=== PATIENT | female | born 1945 | race Caucasian/White ===

== ENCOUNTER 2017-01-26 07:13 | Emergency (ER) | payer MEDICARE, OTHER ==
[2016-06-15 12:33] VITALS: BMI 45.6
[~2017-01-26 07:13] MED LIST: ALENDRONATE SOD70 MG PO; ALLEGRA180 MG PO; AMITRIPTYLINE100 MG PO; ASPIRIN325 MG PO; BENTYL10 MG PO; BYSTOLIC5 MG PO; CALCIUM 600+D T1 TA1 PO; CARAFATE1 G PO; CELEBREX200 MG PO; COUMADIN7.5 MG PO; ENABLEX15 MG PO; FERROUS SULFAT325 MG PO; FLAXSEED OIL1000 MG PO; FLUTICASONE PRO16 GM NASAL; FLUTICASONE PRO16 GM NS; KLOR-CON 1010 MEQ PO; LANOXIN125 MCG PO; LANOXIN250 MCG PO; LASIX20 MG PO; LASIX40 MG PO; LISINOPRIL5 MG PO; LOMOTIL TABLET1 TAB PO; MIRALAX527 GM PO; NEURONTIN600 MG PO; NEXIUM10 MG/PACK PO; NITROSTAT0.4 MG SL; NORCO 7.5-3251 EACH PO; PLAVIX75 MG PO; PREMPRO 0.625/21 TAB PO; REGLAN10 MG PO; REQUIP XL2 MG PO; REQUIP1 MG PO; RESTORIL15 MG PO; RITALIN10 MG PO; SOMA350 MG; SYNTHROID100 MCG PO; SYNTHROID150 MCG PO; TOPAMAX100 MG PO; TOPROL XL50 MG PO; TRILEPTAL600 MG PO; VITAMIN B-1000 MCG/M IM; VITAMIN D250000 UNIT PO; VITAMIN D50000 UNIT PO; WELLBUTRIN SR150 MG PO; XANAX1 MG PO; XARELTO20 MG PO; ZANAFLEX4 MG PO; ZANTAC150 MG PO
[2017-01-26 08:10] LABS: BASOPHILS 0.3 % (0-2); HEMATOCRIT 33.8 % (36.0-48.0); HEMOGLOBIN 10.6 g/dL (12-16); IMMATURE GRANULOCYTES 0.3 % (0-5); LYMPHOCYTES 15.7 % (15-50); MCH 30.9 pg (26.0-34.0); MCHC 31.4 g/dL (31.0-37.0); MCV 98.5 fL (80.0-100.0); MEAN PLATELET VOLUME 9.6 fL (7.4-10.4); MONOCYTES 8.9 % (2-11); NEUTROPHILS 73.8 % (40-80); RBC 3.43 10x6/uL (4.00-5.40); WBC 7.7 10x3/uL (4.8-10.8)
[2017-01-26 08:11] LABS: PLATELET COUNT 308 10x3/uL (130-400)
[2017-01-26 08:40] LABS: ALBUMIN 2.7 g/dL (3.4-5.0); ALKALINE PHOSPHATASE 255 U/L (46-116); ALT (SGPT) 23 U/L (10-68); CALC OSMOLALITY 276 mosm/kg (275-300); CALCIUM 8.4 mg/dL (8.5-10.1); CARBON DIOXIDE 27.6 mmol/L (21.0-32.0); CHLORIDE - SERUM 103 mmol/L (98-107); CREATININE - SERUM 0.7 mg/dL (0.6-1.3); POTASSIUM - SERUM 3.5 mmol/L (3.5-5.1); PROTEIN - SERUM 6.8 g/dL (6.4-8.2); SODIUM 139 mmol/L (136-145); UREA NITROGEN 11 mg/dL (7-18); eGFR NON AFRICAN AMERICAN 87 mL/min (90-120)
[2017-01-26 08:42] LABS: GLUCOSE 107 mg/dL (74-106)
[2017-01-26 08:51] LABS: CKMB 1.3 U/L (0.0-3.6); CREATINE KINASE 48 UL (21-215)
[2017-01-26 08:53] LABS: TROPONIN-I < 0.017 ng/mL (0.000-0.060)
[2017-01-26 10:36] LABS: TROPONIN-I 0.018 ng/mL (0.000-0.060)
[2017-01-26 12:47] LABS: APPEARANCE CLEAR (CLEAR); BILIRUBIN NEGATIVE (NEGATIVE); COLOR STRAW (YELLOW); GLUCOSE NEGATIVE (NEGATIVE); KETONE NEGATIVE (NEGATIVE); LEUKOCYTE ESTERASE NEGATIVE (NEGATIVE); NITRITE NEGATIVE (NEGATIVE); PROTEIN NEGATIVE (NEGATIVE); SPECIFIC GRAVITY 1.005 (1.005-1.020); UROBILINOGEN NORMAL (NORMAL)
[2017-01-26 12:48] LABS: BACTERIA FEW /hpf (NONE SEEN); EPITHELIAL CELLS OCC /hpf (0-5); RED CELLS - URINE 0-5 /hpf (0-5); WHITE CELLS - URINE OCC /hpf (0-5)
== END 2017-01-26 19:35 | disposition home or self-care (01) ==
LOC: D.ER 07:13
PROVIDERS: Family Medicine
DX: R07.89 Other chest pain (principal); Z95.5 Presence of coronary angioplasty implant and graft; I48.91 Unspecified atrial fibrillation

== ENCOUNTER 2017-03-23 09:59 | Inpatient (IN) | payer MEDICARE, OTHER ==
[~2017-03-23] VITALS: Ht 167.6 cm; Wt 102.3 kg
--- NOTE | ~2017-03-23 | EC ---
PATIENT:JETT MANN DATE OF SERVICE: 03/24/17 SEX: F MEDICAL RECORD: [id number] DATE OF : 43 LOCATION:[facility] AGE OF PATIENT: 71 ADMISSION DATE: 03/24/17 REFERRING PHYSICIAN: INTERPRETING PHYSICIAN: CONCEPCIÓN DOMINGO MD ECHOCARDIOGRAM REPORT ECHO CHARGES 4 ECHO COMPLETE CLINICAL DIAGNOSIS: AFIB/L MCA INFARCT HX CAD/STENTS ECHOCARDIOGRAPHIC MEASUREMENTS (adult normal given) AC root (d.<3.7cm) 3.0 cm LV Septum d (<1.2 cm> 1.0 cm Valve Excursion 1.9 cm LV Septum (systole) 1.3 cm Left Atria (s.<4.0cm> 4.5 cm LVPW d(<1.2cm) 1.1 cm RV (d.<2.3cm) 4.4 cm LVPW (sytole) 1.4 cm LV diastole(<5.6CM) 6.3 cm MV E-F(>70mm/sec) cm LV systole 4.7 cm LVOT Diameter 1.6 cm MV exc.(>10mm) 1.9 cm Est.ejection fraction (50-75%) % Pericardial Effusion N DOPPLER: LVIT cm/sec A 48.0 cm/sec E 127 cm/sec LA cm/sec RVSP 32 mmHg LVOT 61 cm/sec AOP1/2T 1000 m/s Asc. Ao 154 cm/sec RVOT 108 cm/sec RA cm/sec PA 140 cm/sec AV Gradient Peak 9.52 mmHg AV Mean 4.85 mmHg AV Area 1.1 cm MV Gradient Peak 9.03 mmHg MV Mean 2.66 mmHg MV Area cm COMMENTS: Receiving Associate: Charlene SANTA Shade Matcher: 1 Dr. Domingo TAPE# PACS DATE OF SERVICE: 03/25/2017 ECHOCARDIOGRAM FINDINGS: 1. Left ventricular chamber size is mildly dilated. Left ventricular systolic function is normal. Overall ejection fraction estimated at 55%. 2. Left atrium is mildly enlarged at 4.5 cm. Right atrium and right ventricle chamber sizes are as well mildly dilated. 3. Valvular structures have normal structure and motion. ECHOCARDIOGRAM REPORT [id number] JETT MANN 4. Doppler interrogation reveals acnmtrgp-[id number] aortic insufficiency, mild mitral regurgitation, mild tricuspid regurgitation, no other valvular insufficiency or stenosis. Pulmonary systolic pressure is preserved, estimated at 32 mmHg. 5. No evidence of pericardial effusion or left ventricular thrombus. TRANSINT:[id number] Voice Confirmation ID: [id number] DOCUMENT ID: [id number] CONCEPCIÓN DOMINGO MD CC: [id number] DICTATION DATE: 03/25/17 1639 MECHANICAL ENGINEERING TECHNICIAN: 03/26/17 0010 ADM IN [facility] [address] [id number]
--- NOTE | ~2017-03-23 | CN ---
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 Currently, has some dysarthria that is improving. No other complaints. We are asked to see her concerning her cardiovascular status. PAST MEDICAL HISTORY: Includes: 1. History of cardiomyopathy. 2. Atrial fibrillation, chronic in nature. 3. Hypertension. 4. Osteoarthritis, status post total knee on the right. ALLERGIES: FLEXERIL AND PENICILLIN. MEDICATIONS: Typically include Zantac 150 at h.s., Lasix 80 q. day, Ambien 5 q.h.s. p.r.n., Xanax 1 mg b.i.d. p.r.n., Trileptal 600 q. day, Requip 300 t.i.d., amitriptyline 100 at h.s., Wellbutrin 150 q. day, lisinopril 5 q. day, digoxin 0.125 q. day, metoprolol 50 daily, Xarelto 20 q. day, Zanaflex 4 mg t.i.d. SOCIAL HISTORY: Lives in [place]. She is a nonsmoker. Typically, is able to take care of her ADLs. Good family support. REVIEW OF SYSTEMS: The patient reports easy bruising but reports no swollen glands. The patient reports no fever, no night sweats, no significant weight gain, no significant weight loss. No significant exercise tolerance. The patient reports no dry eyes, no irritation, no vision change. Patient reports no difficulty hearing and no ear pain. Patient reports no frequent nose bleeds or nose and sinus problems. Patient reports on arm pain on exertion. No shortness of breath while lying down. No history of heart murmur. Patient reports no cough, no wheezing or coughing up blood. Patient reports no abdominal pain, no vomiting. Normal appetite. No diarrhea and not vomiting blood. No nausea and no constipation. Patient reports no incontinence. No difficulty urinating. No hematuria. No increased frequency. Patient reports no muscle aches. No weakness, no arthralgias, no back pain. No swelling of the extremities. Patient reports no abnormal mole, no jaundice, no rashes. Reports no loss of consciousness. No weakness and no numbness. No seizures, dizziness, or headaches. The patient reports no depression, no sleep disturbance, feeling safe in a relationship and no alcohol abuse. Patient reports on fatigue. Reports no runny nose or sinus pressure. No itching, no hives, and no frequent sneezing. PHYSICAL EXAMINATION: GENERAL: Pleasant, well developed female, in no acute distress. VITAL SIGNS: 127/67, pulse 78. CONSULT REPORT [id number] JETT MANN HEENT: Normocephalic, atraumatic. NECK: No bruits noted. HEART: Irregular. II/ systolic ejection murmur. LUNGS: Good air excursion. ABDOMEN: Soft, nontender. EXTREMITIES: Pulses are 2+ with no edema. NEUROLOGIC: She has obvious dysarthria and is awake, cooperative. IMPRESSION: Atrial fibrillation, some bradyarrhythmias. This is mostly occurring at night. If rates increase nicely during the day, would continue current medications. If rate becomes slower, could consider stopping Lanoxin. Further recommendations based on clinical course. No contraindication at discharge from cardiac standpoint. TRANSINT:[id number] Voice Confirmation ID: [id number] DOCUMENT ID: [id number] ELIZABETH ESTRADA MD CC: [id number] DICTATION DATE: 03/26/17 1406 GLASSINE MACHINE TENDER: 03/26/17 2220 ADM IN [id number] [place] [address]
[2017-03-23 10:40] LABS: BASOPHILS 0.3 % (0-2); EOSINOPHILS 3.2 % (0-7); HEMATOCRIT 33.9 % (36.0-48.0); HEMOGLOBIN 10.8 g/dL (12-16); IMMATURE GRANULOCYTES 0.2 % (0-5); LYMPHOCYTES 11.5 % (15-50); MCH 30.8 pg (26.0-34.0); MCHC 31.9 g/dL (31.0-37.0); MCV 96.6 fL (80.0-100.0); MEAN PLATELET VOLUME 9.7 fL (7.4-10.4); MONOCYTES 7.8 % (2-11); RBC 3.51 10x6/uL (4.00-5.40); RDW 14.9 % (11.5-14.5); WBC 6.5 10x3/uL (4.8-10.8)
[2017-03-23 10:42] LABS: PLATELET COUNT 216 10x3/uL (130-400)
[2017-03-23 10:49] LABS: ANION GAP 11.3 mmol/L (8-16); CALCIUM 8.4 mg/dL (8.5-10.1); CARBON DIOXIDE 24.5 mmol/L (21.0-32.0); CREATININE - SERUM 1.1 mg/dL (0.6-1.3); POTASSIUM - SERUM 4.8 mmol/L (3.5-5.1)
[2017-03-23 10:50] LABS: INR 1.02 (0.85-1.17); PROTIME 13.3 SECONDS (11.6-15.0)
[2017-03-23 12:25] LABS: APPEARANCE CLEAR (CLEAR); BILIRUBIN NEGATIVE (NEGATIVE); COLOR YELLOW (YELLOW); GLUCOSE NEGATIVE (NEGATIVE); KETONE NEGATIVE (NEGATIVE); LEUKOCYTE ESTERASE NEGATIVE (NEGATIVE); NITRITE NEGATIVE (NEGATIVE); PROTEIN NEGATIVE (NEGATIVE); UROBILINOGEN NORMAL (NORMAL)
[2017-03-23 12:31] LABS: BACTERIA FEW /hpf (NONE SEEN); EPITHELIAL CELLS RARE /hpf (0-5); RED CELLS - URINE RARE /hpf (0-5); WHITE CELLS - URINE NSEEN /hpf (0-5)
--- NOTE | 2017-03-23 15:20 | NUR ---
PATIENT RECEIVED TO FLOOR FROM ER VIA STRETCHER. PATIENT A/O X4. NO SIGNS OF DISTRESS NOTED. TRANSFERRED TO BED. PATIENT REQUESTING CATHETER. EXPLAINED TO PATIENT WE DON'T USE CATHETERS UNLESS THEY ARE ABSOLUTELY NECESSARY BECAUSE OF THE RISK OF INFECTION AND OTHER PROBLEMS. PATIENT STATES "I'M WET." WET BRIEF REMOVED. CLEANSED WITH BATH WIPES AND POSITIONED FOR COMFORT. WHEN ASKED ABOUT MOBILITY PATIENT STATES SHE CAN GET UP WITH HELP FROM 2 PEOPLE. BSC PLACED IN ROOM. PATIENT ORIENTED TO ROOM. DENIES NEEDS. SIDE RAILS UP X2. CALL LIGHT IN REACH. BED ALARM ON.
[2017-03-23] MEDS ORDERED: AMBIEN5 MG PO (15:31)
[2017-03-23] MEDS ORDERED: BACTRIM DS TABL1 TAB PO (15:32)
[2017-03-23] MEDS ORDERED: K-DUR20 MEQ PO (15:33)
[2017-03-23] MEDS ORDERED: CALTRATE 600 M600 M1 PO (15:34)
[2017-03-23 15:44] VITALS: Ht 167.6 cm; Wt 102.3 kg
--- NOTE | 2017-03-23 15:45 | NUR ---
ADMISSION COMPLETE. COMPLETE HOME MED LIST OBTAINED FROM PATIENT AND REVIEWED. DENIES NEEDS. YELLOW FALL RISK BAND PLACED ON PATIENT. TELEMETRY PLACED ON PATIENT PER ORDER. GARMENT ALTERATION EXAMINER REPORTS 67 AFIB. SIDE RAILS UP X2. BED IN LOW POSITION. CALL LIGHT IN REACH. BED ALARM ON.
[2017-03-23 15:53] VITALS: BP 115/61
--- NOTE | 2017-03-23 18:10 | NUR ---
PATIENT ALERT IN HIGH AL POSITION VISITING WITH GUEST. NO SIGNS OF DISTRESS NOTED. DENIES NEEDS. SIDE RAILS UP X2. BED IN LOW POSITION. CALL LIGHT IN REACH.
--- NOTE | 2017-03-23 19:35 | NUR ---
PT RESTING IN BED WITH GUEST AT BS AND DENIES NEEDS AT THIS TIME. BED IN LOWEST POSITION, CALL LIGHT WITHIN REACH, AND BED ALARM ON. ENCOURAGED THE PT TO CALL IF SHE HAS NEEDS.
[2017-03-23 20:00] VITALS: BP 114/70
--- NOTE | 2017-03-23 20:17 | NUR ---
SPOKE WITH LEO BLUNGER LOADER TO LET HER KNOW PT HAS 2100 MEDS THAT NEEDS TO BE PULLED
[2017-03-24 04:00] VITALS: BP 153/78
--- NOTE | 2017-03-24 08:15 | NUR ---
ASSESSMENT COMPLETE. IV TO R HAND PATENT. NS INFUSING AT 75 CC/HR VIA PUMP. TRANSIT PLANNER SHOWING AFIB 97 PER TECH. BED ALARM IN USE.
[2017-03-24 08:23] VITALS: BP 153/65
[2017-03-24 09:48] LABS: BASOPHILS 0.4 % (0-2); EOSINOPHILS 2.9 % (0-7); HEMATOCRIT 36.6 % (36.0-48.0); HEMOGLOBIN 11.5 g/dL (12-16); LYMPHOCYTES 22.1 % (15-50); MCH 31.2 pg (26.0-34.0); MCHC 31.4 g/dL (31.0-37.0); MEAN PLATELET VOLUME 9.8 fL (7.4-10.4); MONOCYTES 11.8 % (2-11); NEUTROPHILS 62.8 % (40-80); PLATELET COUNT 215 10x3/uL (130-400); RBC 3.69 10x6/uL (4.00-5.40); RDW 15.1 % (11.5-14.5)
--- NOTE | 2017-03-24 09:57 | NUR ---
Patient Name: JETT MANN Admission Status: ER Accout number: [id number] Admission Date: 03-23-2017 : 1945 Admission Diagnosis: Attending: ADDIS Current LOS: 1 Anticipated DC Date: 03-25-2017 Planned Disposition: Home Primary Insurance: MEDICARE A & B Discharge Planning Comments: CM MET WITH PATIENT REGARDING D/C NEEDS AND PLANS. PATIENT STATED SHE LIVES WITH HER SPOUSE AND THEY HAVE A RAMP TO ENTER HOME AND NO STAIRS INSIDE. PATIENT WILL CALL HER BROTHER TO TAKE HER HOME AT DISCHARGE. PATIENT STATED SHE IS INDEPENDENT WITH HER CARE AND HAS A WALKER AND SHOWER CHAIR AT HOME. PATIENTS PCP IS DR. DIANNE NAVA AND PHARMACY IS [facility]. PATIENT IS REFUSING HOME HEALTH AND STATED SHE DID NOT WANT IT AND CM TALKED WITH SPOUSE AND HE STATED SHE WAS GETTING AROUND GOOD AND DOES NOT NEED HOME HEALTH. CM WILL CONTINUE TO FOLLOW PATIENT WITH D/C NEEDS AND PLANS. PCP DR. NAVA [facility] [place]- [phone] NIKKI (SPOUSE) [phone] Yarn Man: Nicolasa Chakraborty Is the patient Alert and Oriented? Yes 0 * How many steps to enter\exit or inside your home? RAMP 0 * PCP DR. DIANNE NAVA 0 * Pharmacy [facility] [place] 0 * Preadmission Environment Home with Family 0 * ADLs Independent 0 * Equipment Shower Chair Walker 0 * List name and contact numbers for known caregivers / representatives who currently or will assist patient after discharge: NIKKI (SPOUSE) [phone] * Community resources currently utilized None 0 * Additional services required to return to the preadmission environment? Yes 0 * Can the patient safely return to the preadmission environment? Yes 0 * Has this patient been hospitalized within the prior 30 days at any hospital? No 0 Grand Total: 0
[2017-03-24 10:00] LABS: MCV 99.2 fL (80.0-100.0); WBC 4.5 10x3/uL (4.8-10.8)
--- NOTE | 2017-03-24 10:06 | NUR ---
OFF FLOOR IN MRI AT THIS TIME.
[2017-03-24 10:16] LABS: ALBUMIN 2.9 g/dL (3.4-5.0); ANION GAP 11.4 mmol/L (8-16); BILIRUBIN - TOTAL 0.3 mg/dL (0.2-1.3); CALCIUM 8.2 mg/dL (8.5-10.1); CARBON DIOXIDE 27.3 mmol/L (21.0-32.0); PROTEIN - SERUM 6.6 g/dL (6.4-8.2)
[2017-03-24 10:17] LABS: POTASSIUM - SERUM 3.7 mmol/L (3.5-5.1)
--- NOTE | 2017-03-24 11:50 | NUR ---
RECIEVED CALL FROM DR MIN. NOTIFIED THAT PATIENT HAS AN EARLY SUBACUTE INFARCT TO L TEMPORAL LOBE. KIN BEYER APN ON FLOOR NOTIIFED OF RESULTS.
[2017-03-24 12:05] VITALS: BP 139/55
--- NOTE | 2017-03-24 13:00 | NUR ---
SCD'S IN USE TO BILAT LEGS. DENIES ANY NEEDS AT PRESENT.
[2017-03-24 16:05] VITALS: BP 119/58
[2017-03-24 20:00] VITALS: BP 134/69
[2017-03-25] VITALS: BP 149/49
[2017-03-25 04:00] VITALS: BP 134/76
[2017-03-25 05:20] LABS: BASOPHILS 0.2 % (0-2); EOSINOPHILS 3.7 % (0-7); HEMATOCRIT 37.5 % (36.0-48.0); HEMOGLOBIN 11.9 g/dL (12-16); IMMATURE GRANULOCYTES 0.4 % (0-5); LYMPHOCYTES 31.7 % (15-50); MCH 31.2 pg (26.0-34.0); MCHC 31.7 g/dL (31.0-37.0); MCV 98.2 fL (80.0-100.0); MEAN PLATELET VOLUME 9.9 fL (7.4-10.4); MONOCYTES 12.1 % (2-11); NEUTROPHILS 51.9 % (40-80); PLATELET COUNT 241 10x3/uL (130-400); RBC 3.82 10x6/uL (4.00-5.40); RDW 15.3 % (11.5-14.5); WBC 4.6 10x3/uL (4.8-10.8)
[2017-03-25 05:44] LABS: ANION GAP 9.1 mmol/L (8-16); BILIRUBIN - TOTAL 0.4 mg/dL (0.2-1.3); CALCIUM 8.5 mg/dL (8.5-10.1); CARBON DIOXIDE 30.5 mmol/L (21.0-32.0); CREATININE - SERUM 0.8 mg/dL (0.6-1.3); POTASSIUM - SERUM 3.6 mmol/L (3.5-5.1); PROTEIN - SERUM 6.5 g/dL (6.4-8.2)
--- NOTE | 2017-03-25 07:50 | NUR ---
ASSESSMENT COMPLETE. IV TO R HAND PATENT. NS INFUSING AT 75 CC/HR VIA PUMP. DENIES ANY NEEDS AT THIS TIME.
[2017-03-25 09:05] VITALS: BP 117/57
--- NOTE | 2017-03-25 09:45 | NUR ---
NOTIFIED BY MAINTENANCE SHOP TECHNICIAN THAT PATIENT HEART RATE IS DROPPING IN THE 30S. PATIENT WAS RESTING QUIETLY WITH EYES CLOSED. PATIENT AWOKE EASILY. DENIES ANY SYMPTOMS OF A LOW HEART RATE.
--- NOTE | 2017-03-25 10:50 | NUR ---
NOTIFIED BY CONTRACT DESIGN AGENT OF PATIENT'S HEART RATE CONTINUING TO DROP IN THE 30-40S WITH AN ALMOST 2 SECOND PAUSE. EKG OBTAINED. BP 121/37. KIN BEYER APN ON FLOOR NOTIFIED.
[2017-03-25 13:22] VITALS: BP 90/25
--- NOTE | 2017-03-25 15:00 | NUR ---
NO CHANGES NOTED AT THIS TIME.
[2017-03-25 17:36] VITALS: BP 146/69
--- NOTE | 2017-03-25 18:11 | NUR ---
VISITING WITH FAMILY. DENIES ANY NEEDS AT PRESENT.
--- NOTE | 2017-03-25 20:56 | NUR ---
ASSISTED PT TO THE BSC AND BACK TO BED. ADMINISTERED MEDS PER ORDERS. COMPLETED ASSESSMENT. BED IN LOWEST POSITION, CALL LIGHT WITHIN REACH, AND BED ALARM ON. ENCOURAGED THE PT TO CALL IF SHE HAS NEEDS.
[2017-03-26 05:48] LABS: BASOPHILS 0.4 % (0-2); EOSINOPHILS 2.9 % (0-7); HEMOGLOBIN 12.7 g/dL (12-16); IMMATURE GRANULOCYTES 0.2 % (0-5); LYMPHOCYTES 26.3 % (15-50); MCH 31.1 pg (26.0-34.0); MCHC 31.8 g/dL (31.0-37.0); MCV 97.8 fL (80.0-100.0); MEAN PLATELET VOLUME 10.1 fL (7.4-10.4); NEUTROPHILS 57.2 % (40-80); PLATELET COUNT 278 10x3/uL (130-400); RBC 4.09 10x6/uL (4.00-5.40); RDW 15.2 % (11.5-14.5); WBC 5.1 10x3/uL (4.8-10.8)
[2017-03-26 06:07] LABS: ALBUMIN 3.3 g/dL (3.4-5.0); ANION GAP 12.7 mmol/L (8-16); BILIRUBIN - TOTAL 0.3 mg/dL (0.2-1.3); CALCIUM 8.1 mg/dL (8.5-10.1); CARBON DIOXIDE 29.7 mmol/L (21.0-32.0); CHOL - HDL RATIO 2.3 ratio (2.3-4.1); CREATININE - SERUM 0.8 mg/dL (0.6-1.3); LDL-HDL RATIO 1.1 ratio (1.5-3.5); POTASSIUM - SERUM 3.4 mmol/L (3.5-5.1); PROTEIN - SERUM 6.7 g/dL (6.4-8.2)
--- NOTE | 2017-03-26 07:30 | NUR ---
RECIEVED PT DURING WALKING ROUNDS. PT RESTING IN BED WITH NO COMPLAINTS OF PAIN OR DISCOMFORT AT THIS TIME. ASSESSMESNT DONE PER FLOWSHEET. BED IN LOW POSITION AND CALL LIGHT WITHIN REACH. WILL CONTINUE TO MONITOR.
[2017-03-26 08:00] VITALS: BP 111/63
[2017-03-26 12:05] VITALS: BP 127/67
[2017-03-26 16:34] VITALS: BP 165/83
[2017-03-26 20:00] VITALS: BP 162/59
--- NOTE | 2017-03-26 20:30 | NUR ---
PAGED DR. HAMMOND IN REGARDS TO PATIENT'S ALTERED MENTAL STATUS
--- NOTE | 2017-03-26 23:15 | NUR ---
ENTERED PT'S ROOM AND FOUND HER TALKING TO "THE OTHER PERSON IN THE ROOM". PATIENT IS ORIENTED TO SELF ONLY. PATIENT DOES NOT KNOW WHERE SHE IS AND IS USING INAPPRORIATE WORDS WHEN ASKED QUESTIONS. PATIENT PULLED TELEMETRY OFF, HAD HER IV DISCONNECTED, AND WAS TAKING HER GOWN OFF. PT'S BED IS IN THE LOWEST POSITION, CALL LIGHT WITHIN REACH, AND BED ALARM IS ON.
--- NOTE | 2017-03-27 | NUR ---
PAGED DR. HAMMOND IN REGARDS TO PATIENT'S ALTERED MENTAL STATUS
--- NOTE | 2017-03-27 00:05 | NUR ---
SPOKE WITH DR. HAMMOND IN REGARDS TO THE PT'S CHANGE IN MENTAL STATUS. DR. HAMMOND ORDERED 325MG ASPIRIN ONE TIME.
--- NOTE | 2017-03-27 03:05 | NUR ---
PATIENT IS STILL CONFUSED AND USING INAPPROPRIATE WORDS.
[2017-03-27 04:00] VITALS: BP 110/79
--- NOTE | 2017-03-27 04:34 | NUR ---
PATIENT IS STILL CONFUSED, USING INAPPROPRIATE WORDS, AND HALLUCINATING THAT THERE ARE "SNAKES" IN HER ROOM.
[2017-03-27 06:00] LABS: BASOPHILS 0.4 % (0-2); EOSINOPHILS 0.9 % (0-7); HEMATOCRIT 39.7 % (36.0-48.0); HEMOGLOBIN 12.7 g/dL (12-16); IMMATURE GRANULOCYTES 0.2 % (0-5); LYMPHOCYTES 19.1 % (15-50); MCV 96.8 fL (80.0-100.0); MEAN PLATELET VOLUME 9.8 fL (7.4-10.4); MONOCYTES 12.7 % (2-11); NEUTROPHILS 66.7 % (40-80); PLATELET COUNT 270 10x3/uL (130-400); RDW 15.2 % (11.5-14.5); WBC 5.5 10x3/uL (4.8-10.8)
[2017-03-27 06:32] LABS: ALBUMIN 3.4 g/dL (3.4-5.0); ANION GAP 16.5 mmol/L (8-16); BILIRUBIN - TOTAL 0.3 mg/dL (0.2-1.3); CALCIUM 8.6 mg/dL (8.5-10.1); CARBON DIOXIDE 25.4 mmol/L (21.0-32.0); CREATININE - SERUM 0.8 mg/dL (0.6-1.3); POTASSIUM - SERUM 3.9 mmol/L (3.5-5.1); PROTEIN - SERUM 6.6 g/dL (6.4-8.2)
--- NOTE | 2017-03-27 07:30 | NUR ---
RECIEVED PT DURING WALKING ROUNDS. PT RESTING IN BED WITH NO COMPLAINTS OF PAIN OR DISCOMFORT AT THIS TIME. ASSESSMENT DONE PER FLOWSHEET. BED IN LOW POSITION AND CALL LIGHT WITHIN REACH. WILL CONTINUE TO MONITOR.
[2017-03-27 09:02] VITALS: BP 149/62
--- NOTE | 2017-03-27 13:07 | NUR ---
CM REASSESSMENT NOTE: CM REC. CALL FROM SPOUSE (NIKKI) AROUND 12:30PM STATING PATIENT THREATENED TO KILL HIM WHILE TALKING WITH HIM OVER THE PHONE WHEN SHE GETS HOME AND STATING THE NURSES ARE SPLICING TAPES AND PUTTING TOGETHER WHAT SHE SAYS. SPOUSE WAS VERY CONCERENED AND CANDY BIGGS WAS NOTIFIED AND SHE IS SPEAKING WITH DR. DUBOIS.
--- NOTE | 2017-03-27 13:10 | NUR ---
RECIEVED PHONE CALL FROM THE POLICE DISPATCH STATING THAT THE PT HAD CALLED 911 AND WAS ASKING FOR OUTSIDE HELP, EXPLAINED TO THE DISPATCH THAT PT WAS SAFE AND I COULD SEE HER FROM ROOM. PT WAS SITTING ON BED ON THE PHONE WITH DOOR OPEN, I ENTERED PTS ROOM AND PT STATED "I WANT YOU TO GET OUT AND NOT COME BACK UNTIL I GATHER EVERYONE I NEED TO TALK TO" WHEN I ASKED WHO IT WAS SHE NEEDED TO GATHER SHE STATED "DONT WORRY ABOUT IT, I WILL TAKE CARE OF IT" I LEFT PTS ROOM WITH PTS DOOR OPEN, PTS ROOM IS VISABLE FROM NURSES STATION, WILL CONTINUE TO MONITOR.
[2017-03-27 13:26] VITALS: BP 136/67
--- NOTE | 2017-03-27 13:30 | NUR ---
PT WAS STANDING AT THE DOOR CRYING SAYING THAT SHE WAS HELD AGAINST HER WILL IN THIS ROOM ALL NIGHT BY THE STAFF OF THIS HOSPITAL, SHE KEPT STATING THAT SHE WAS BEING MISTREATED BUT TOLD ME SHE WAS NOT GOING TO TELL ME HOW UNTIL SHE HAD SOMEONE SHE TRUSTED TO WITNESS FOR HER. I TOLD THE PT THAT I WOULD COME BACK AND SPEAK WITH HER WHEN SHE WAS READY. I STEPPED OUT OF THE ROOM AND WENT INTO THE NEIGHBORS ROOM WHERE I COULD STILL VISABLY SEE THE PT. THE PTS BED ALARM STARTED TO ALARM, AND THE PT STOOD AT THE DOOR, I NOTICED A BUTTER KNIFE IN THE PTS HAND. I ASKED FOR THE PT TO HAND ME THE KNIFE AND SHE REFUSED. THE PT THEN WALKED TO THE SINK AND KEPT STATING THAT THERE WERE SNAKES EVERYWHERE SHE THEN BEGAN TO TRY TO TAKE THE HAND PUBLIC SAFETY OFFICER AND SOAP DISPENSER OFF THE WALL WITH THE KNIFE AND THEN STUCK THE KNIFE INTO THE PAPER TOWEL DISPENSER AND KEPT STATING THEY ARE ALL IN THERE, I THEN GRABBED THE KNIFE FROM THE PT AND EXPLAINED TO HER THAT THERE WERE NO SNAKES IN THE ROOM. THE PT THEN SNATCHED THE KNIFE FROM MY HAND AND STARTED TO SHRED THE PAPERTOWELS. I WAS ABLE TO GET THE KNIFE AWAY FROM THE PT AND HANDED IT TO A NURSE WHO WAS STANDING OUTSIDE OF THE ROOM. THE PT CONTINUED TO SHOW WHERE SHE WAS SEEING SNAKES AND I INSPECTED EVERY AREA TO ASSURE PT THERE WERE NO SNAKES. YEHUDA ZUÑIGA RN IN ROOM DURING THIS INCIDENT. WE CONTINUED TO ATTEMPT TO ORIENT PT, SHE FINALLY AGREED TO LAY DOWN. DR. DUBOIS INFORMED OF THIS INFORMATION. WILL CONTINUE TO MONITOR PT.
--- NOTE | 2017-03-27 14:56 | NUR ---
CM REASSESSMENT NOTE: PATIENT IS GOING TO LONG-TERM TODAY. BROTHER AT BEDSIDE AND IS CALLING PATIENTS .
[2017-03-27 16:28] VITALS: BP 130/64
--- NOTE | 2017-03-27 18:05 | NUR ---
PT DISCHARGED TO USP VIA WHEELCHAIR AT THIS TIME.
[2017-03-28] MEDS ORDERED: HYDROCODON-ACE1 EAC7 PO (18:49)
== END 2017-03-27 18:06 | DRG 66 ==
LOC: D.ER 09:59 → OBSVTIME 14:07 → D.MS 14:07
PROVIDERS: Emergency Medicine; ADMIT Family Medicine
DX: I63.9 Cerebral infarction, unspecified (principal); R47.01 Aphasia; I10 Essential (primary) hypertension; K21.9 Gastro-esophageal reflux disease without esophagitis; G62.9 Polyneuropathy, unspecified; I08.3 Combined rheumatic disorders of mitral, aortic and tricuspid valves; I48.2 Chronic atrial fibrillation; I25.10 Atherosclerotic heart disease of native coronary artery without angina pectoris; E87.6 Hypokalemia

== ENCOUNTER 2017-03-27 15:56 | Inpatient (IN) | payer MEDICARE, OTHER ==
[~2017-03-27] VITALS: Ht 167.6 cm; Wt 97.5 kg
--- NOTE | ~2017-03-27 | PN ---
PATIENT:JETT MANN MEDICAL RECORD: [id number] LOCATION:[facility] ADMISSION DATE: 03/27/17 PROGRESS NOTE DATE OF SERVICE: 03/31/2017 SUBJECTIVE: No new complaint. OBJECTIVE: The patient has done well over the last several days. No further evidence of hallucinosis. She is taking medication as prescribed and has not exhibited any behavioral problems. On exam, mood is euthymic. Affect is bland. Speech is fairly fluent. Content of thought shows no overt psychosis. Sensorium is unchanged. ASSESSMENT: No change in diagnosis. PLAN: 1. Maintain current medication. 2. Continue supportive therapy. TRANSINT:[id number] Voice Confirmation ID: [id number] DOCUMENT ID: [id number] ANASTASIIA CAMPOS III, MD CC: [id number] DICTATION DATE: 03/31/1748 SERVICE CENTER MANAGER: 03/31/17 1416 ADM IN [id number] [place] [address]
--- NOTE | ~2017-03-27 | DS ---
PATIENT:JETT MANN :43 MEDICAL RECORD: [id number] DISCHARGE SUMMARY ADMISSION DATE: 03/27/17 DISCHARGE DATE: 04/01/17 DATE OF ADMISSION: 03/27/2017 DATE OF DISCHARGE: 04/01/2017 HISTORY: A 71-year-old white female, who was admitted on transfer from the medical floor because of acute mental status change. PERTINENT HISTORY: The patient apparently had a transient ischemic attack or perhaps mild CVA in the distribution of left middle cerebral artery. She exhibited significant mental status changes and was acutely confused and disoriented briefly during her time on the medical floor. She also made inappropriate statements because of the marked change in mental status. The patient was transferred to [facility]. COURSE IN THE HOSPITAL: The patient was seen in consultation by Dr. Dey. Dr. Dey noted the presence of ongoing medical problems including congestive heart failure, gastroesophageal reflux disease, cerebrovascular accident, bradycardia and atrial fibrillation. From a medication standpoint, effort was made to simplify her medication regimen. The patient was taken off of alprazolam, which she had been receiving on a routine basis. She was maintained on calcium carbonate, iron sulfate, Maeve, Flonase, Lasix 80 mg daily, lisinopril 5 mg daily, Toprol-XL 50 mg daily, Trileptal 60 mg b.i.d., potassium 50 mEq daily, Requip 3 mg t.i.d., Zanaflex 4 mg t.i.d., digoxin 0.125 mg daily, Xarelto 20 mg daily, p.r.n. [place], Pepcid 20 mg h.s. The patient was also given a course of Rocephin for urinary tract infection. The patient showed a good resolution of her symptoms during hospitalization. Her confusion and disorientation cleared considerably. She was alert and oriented to time, place and person by the second hospital day. By the time of discharge, she was felt to be stable enough to return to the home environment. FINAL DIAGNOSES: AXIS I: Subacute delirium, major depressive disorder. AXIS II: No diagnosis. AXIS III: Recent cerebrovascular accident, congestive heart failure, gastroesophageal reflux disease, cardiac arrhythmias. AXIS IV: Moderate. AXIS V: 40. PLAN: 1. The patient is discharged on current medications. 2. Diet and activities as tolerated. 3. Follow up through her primary care physician. TRANSINT:[id number] Voice Confirmation ID: [id number] DOCUMENT ID: [id number] DISCHARGE SUMMARY REPORT [id number] JETT MANN III, ANASTASIIA Proctor MD CC: [id number] DICTATION DATE: 04/02/171106 AUTOGRAPHER: 04/02/172125 DIS IN 04/01/[id number] [place] [id number]
[~2017-03-27 15:56] MED LIST changes: +AMBIEN5 MG PO; +BACTRIM DS TABL1 TAB PO; +CALTRATE 600 M600 M1 PO; +K-DUR20 MEQ PO
--- NOTE | 2017-03-27 18:22 | NUR ---
RECEIVED TO ROOM 1131 VIA WHEELCHAIR FROM [employer]. DX: ALTERED MENTAL STATUS. SHE IS HALLUCINATING, PARANOID AND DELUSIONAL. APPEARS ALERT AND ORIENTED, THEN STAWRTS TALKING TO THE VELA, SEEING SNAKES IN HER ROOM. SHE WAS TRYING TO USE HER BUTTER KNIFE TO KILL THE SNAKES. SHE HAS CALM DOWN FROM EARLIER, AFTER RECEIVING XANAX 1 MG PO. INTRODUCED TO UNIT AND BOUGHT TO DAYROOM. WILL CONTINUE TO MONITOR.
[2017-03-27 22:29] VITALS: BP 135/70; BMI 34.7
--- NOTE | 2017-03-28 03:12 | NUR ---
B) Alert and oriented X 4, calm and cooperative with care and assessment, no hallucinations or behaviors noted, I) PRN medications only this shift, established code word 'JJ' , code status is Full Code, finished intake consents, assessemt, and history, R) Cooperative and fully oriented, no memory of hallucinations in Med II, P) Continue plan of care.
[2017-03-28 07:54] VITALS: BP 142/75
[2017-03-28 08:30] LABS: BASOPHILS 0.3 % (0-2); EOSINOPHILS 1.8 % (0-7); HEMATOCRIT 42.6 % (36.0-48.0); HEMOGLOBIN 13.6 g/dL (12-16); IMMATURE GRANULOCYTES 0.1 % (0-5); LYMPHOCYTES 24.1 % (15-50); MCHC 31.9 g/dL (31.0-37.0); MEAN PLATELET VOLUME 9.9 fL (7.4-10.4); MONOCYTES 11.3 % (2-11); NEUTROPHILS 62.4 % (40-80); RBC 4.39 10x6/uL (4.00-5.40); RDW 15.4 % (11.5-14.5); WBC 6.7 10x3/uL (4.8-10.8)
[2017-03-28 08:46] LABS: PLATELET COUNT 359 10x3/uL (130-400)
[2017-03-28 08:48] LABS: ALBUMIN 3.5 g/dL (3.4-5.0); ANION GAP 12.2 mmol/L (8-16); BILIRUBIN - TOTAL 0.53 mg/dL (0.2-1.3); CALCIUM 8.8 mg/dL (8.5-10.1); CARBON DIOXIDE 29.6 mmol/L (21.0-32.0); CHOL - HDL RATIO 2.1 ratio (2.3-4.1); LDL-HDL RATIO 0.9 ratio (1.5-3.5); POTASSIUM - SERUM 3.8 mmol/L (3.5-5.1); PROTEIN - SERUM 7.6 g/dL (6.4-8.2); THYROID STIMULATING HORMONE 0.7 uIU/mL (0.36-3.74)
[2017-03-28 08:49] LABS: CREATININE - SERUM 1.1 mg/dL (0.6-1.3)
[2017-03-28 09:05] LABS: HEMOGLOBIN A1C 5.6 % (4.8-6.0)
--- NOTE | 2017-03-28 12:28 | NUR ---
LOMOTIL GIVEN FOR C/O DIARRHEA. VISITS.
[2017-03-28 13:38] VITALS: Ht 167.6 cm; Wt 97.5 kg
--- NOTE | 2017-03-28 16:21 | NUR ---
oriented to person, place, and time. no hallucinations noted. no aggression noted. medications given as ordered. updated pt's brother who came to visit today. pt uses her walker to ambulate. fall precautions maintained. will continue to monitor and continue with plan of care.
[2017-03-28 18:46] LABS: APPEARANCE HAZY (CLEAR); BILIRUBIN NEGATIVE (NEGATIVE); COLOR YELLOW (YELLOW); GLUCOSE NEGATIVE (NEGATIVE); KETONE NEGATIVE (NEGATIVE); LEUKOCYTE ESTERASE NEGATIVE (NEGATIVE); NITRITE NEGATIVE (NEGATIVE); PROTEIN NEGATIVE (NEGATIVE); SPECIFIC GRAVITY 1.015 (1.005-1.020); UROBILINOGEN NORMAL (NORMAL)
[2017-03-28] MEDS ORDERED: HYDROCODON-ACE1 EAC7 PO (18:49)
[2017-03-28 19:30] VITALS: BP 130/86
--- NOTE | 2017-03-29 00:53 | NUR ---
B) Patient alert and oriented X 4, calm and cooperative, I) Administered perscribed medications, PRN [place] given for leg pain at 2019 and PRN Lomotil given at 2100, R) Medication compliant, resting quietly now, P) Continue plan of care.
[2017-03-29 06:12] LABS: RAPID PLASMA REAGIN Non Reactive (Non Reactive)
[2017-03-29 07:20] LABS: FOLATE (FOLIC ACID) - SERUM >20.0 ng/mL (>3.0)
[2017-03-29 07:47] VITALS: BP 123/70
--- NOTE | 2017-03-29 15:40 | NUR ---
AWAKE, ALERT AND ORIENTED X 4. CALM AND COOPERATIVE WITH ASSESSMENT AND CARE. DENIES ANY HALLUCINATIONS TODAY. AMBULATORY WITH WALKER. COMPLIANT WITH MEDICATIONS. SAFETY MAINTAINED. CONTINUE PLAN OF CARE.
[2017-03-29 19:30] VITALS: BP 128/47
--- NOTE | 2017-03-30 03:06 | NUR ---
B) Patient alert and oriented X 4, calm and watching TV, social with other patients and staff, I) Adminstered schduled medications, monitored for safety, PRN [place] at 02:56 for leg and back pain 9 of , R) Medication compliant, P Continue plan of care.
--- NOTE | 2017-03-30 05:30 | HP ---
PATIENT: JETT MANN MEDICAL RECORD: [id number] ACCOUNT: [id number] LOCATION:[facility] : 44 ADMISSION DATE: 03/27/17 HISTORY AND PHYSICAL EXAMINATION IDENTIFYING DATA: This is the first residential admission for this 71-year-old white female. The patient was accepted on transfer from the medical floor where she was admitted because of acute mental status change. HISTORY OF PRESENT ILLNESS: The patient was seen in consultation by Dr. Colon yesterday. At that time, she exhibited paranoid delusional ideation. She stated that people were trying to harm her. The patient has a previous history of mood disorder and has been treated with antidepressants as well as anxiolytic in the past. Prior to admission, the patient had been taking a substantial dose of alprazolam 1 mg twice a day. The patient had also been treated with Trileptal, which is an anticonvulsant frequently used for control of mood disorders. The patient has been on antidepressants and/or anxioliting medications for some time as evidenced by previous admissions. During her brief admission on the medical floor, the patient was seen by neurology. It was noted that the patient likely had a cerebral infarction in the distribution of the left middle cerebral artery. The patient was noted to have continued minor weakness and hyperesthesia in the right lower extremity. The patient exhibited word finding pauses and disorientation during her previous evaluation prior to transfer. Subsequent to transfer to the psychiatric floor, the patient did show some affective of lability and anxiety. She did receive p.r.n. Ativan for control. The patient was also seen by cardiology during the previous admission. She was noted to be experiencing atrial fibrillation and perhaps some bradyarrhythmias. Because of changes in mental status including acute paranoid ideation as well sensorium difficulties consultation was requested. Additional information obtained during psychiatric consultation included fact the patient had insisted that she could not walk, although she is ambulatory. It is noted also that when the patient was told that she would likely be discharged she exhibited an acute change in mental status and eventuate paranoia and disorientation. She was subsequently transferred to the psychiatric floor. PAST MEDICAL HISTORY: Significant for congestive heart failure, gastroesophageal reflux disease, recent CVA, neuropathy in both legs, hypokalemia, bradycardia, atrial fibrillation. MEDICATION: Prior to transfer did include Wellbutrin SR 150 mg b.i.d., Xanax 1 mg b.i.d., Ambien 5 mg p.r.n. ALLERGIES: INCLUDE CYCLOBENZAPRINE AND PENICILLINS. FAMILY HISTORY: Noncontributory. SOCIAL HISTORY: The patient is . She continues to see a physician in [place], although she currently lives in [place]. She denies substance abuse. REVIEW OF SYSTEMS: Noncontributory. HISTORY AND PHYSICAL [id number] JETT MANN MENTAL STATUS EXAMINATION: On interview today, the patient is alert and pleasant. Mood is generally euthymic. Affect is fairly well controlled. Speech appears to be fluent. Content of thought has been positive for paranoid statements, but as of this morning, the patient is no longer acutely paranoid. She is oriented to person, place, month, and year. She continues to show some difficulty with concentration. DIAGNOSTIC IMPRESSION: AXIS I: Major depressive disorder by history -- possible subacute delirium. AXIS II: Deferred. AXIS III: Congestive heart failure, gastroesophageal reflux disease, cerebrovascular accident, bradycardia, atrial fibrillation. AXIS IV: Moderate. AXIS V: 36. PLAN: 1. The patient is admitted for further evaluation and medication adjustment as indicated. 2. Diet and activities as tolerated. 3. Daily supportive therapy. TRANSINT:[id number] Voice Confirmation ID: [id number] DOCUMENT ID: [id number] ANASTASIIA CAMPOS III, MD at 0530 CC: [id number] DICTATION DATE: 03/28/17 1225 RAILWAY EQUIPMENT OPERATOR: 03/28/17 1256 ADM IN [place] [id number] [place] [id number]
[2017-03-30 08:07] VITALS: BP 159/89
[2017-03-30 10:08] LABS: VITAMIN D 25 HYDROXY 65.2 ng/mL (30.0-100.0)
--- NOTE | 2017-03-30 17:43 | NUR ---
TOR GIVEN THIS AM AT 0911 FOR C/O PAIN IN BILAT KNEES AND LOWER BACK WITH FAIR RESPONSE.DENIES HALLUCINATIONS.IS ORIENTED X 3.AMBULATORY WITH WALKER.IS COMPLIANT WITH MEDS AND STAFF.TRIES TO HELP OTHER PATIENTS.WILL CONTINUE WITH PLAN OF CARE,MONITOR FOR CHANGES AND SAFETY.
--- NOTE | 2017-03-30 18:10 | NUR ---
NORCO 5MG GIVEN AT 1553 FOR PAIN RATED 10 IN KNEES AND BACK WITH FAIR RESPONSE RATED A 7.SMILES AND STATES"IT TAKES THE EDGE OFF IT"
[2017-03-30 20:01] VITALS: BP 106/55
--- NOTE | 2017-03-30 21:29 | NUR ---
RECEIVED IN DAYROOM. SITTING IN CHAIR SOCIALIZING WITH A PEER. CALM AND COOPERATIVE WITH CARE AND ASSESSMENTS. NO SIGNS OF HALLUCIANTIONS. ENCOURAGE TO EXPRESS NEEDS. CONTINUES TO SOCIALIZE WITH PEER. CONTINUE PLAN OF CARE
[2017-03-31 07:00] VITALS: BP 108/67
--- NOTE | 2017-03-31 13:11 | CN ---
PATIENT NAME:JETT MANN MEDICAL RECORD: [id number] : 43 LOCATION:[facility] ADMIT DATE: 03/27/17 ACCOUNT: [id number] CONSULTING PHYSICIAN: LORETTA WONG MD REFERRING PHYSICIAN: ANASTASIIA CAMPOS III, MD DATE OF CONSULTATION: 03/27/2017 Psychiatric Consultation IDENTIFYING DATA: The patient is 71 years old and she was admitted to the hospital secondary to an acute mental status change. CHIEF COMPLAINT: None. HISTORY OF PRESENT ILLNESS: The patient apparently has number of medical problems including atrial fibrillation, hypothyroidism, gastroesophageal reflux disease, congestive heart failure and probable ischemic injury to the left temporal area that is subacute. At any rate, she has been having intermittent psychotic symptoms. Earlier today, she was seeing snakes and trying to stab them with a knife from her breakfast tray. She is insisting she cannot walk, although the neurologist says she can. The patient endorses a lot of neurovegetative depressive symptoms, but says she is not depressed. She says that I could help her if I wanted to, but I do not want to, because I am working with these other group of people who are all out to harm her. She would not answer questions about who these other people are and how she knows I am associated with them except to indicate that my questioning is silly and that I know perfectly well who I am working with for and against her. Clearly, it is profoundly paranoid. MENTAL STATUS EXAMINATION: The patient is awake, alert and oriented to person, place, time and situation. Her mood is anxious. Her affect is constricted. Thought processes are circumstantial. Memory, concentration and abstraction abilities are mildly impaired and she denies any active intent to harm herself or others and she is denying psychotic symptoms. ASSESSMENT: Major depression with psychosis. PLAN: The patient has a presentation that is consistent with psychotic illness associated with a depression. She insists she does not have a past psychiatric history, but when I tell her she is going to be moved to a different floor she immediately says you mean the [facility] and I have been there before and I checked it myself out. She will not give me more details about it. She may well have a delirium, possibly associated with substance use, but she denies that she has been an abuser of either drugs or alcohol. The denial seems sincere. It may well be that she has a chronic mental illness in this thinking disorder spectrum. Certainly, the degree of paranoia she has is significant, but given the fact that I do not have all the information, she is displaying a lot of depressive symptoms along with the psychosis. I am going to just go ahead and indicate that this is a major depression with psychotic features. She is going to be transferred to the psychiatric [facility] and evaluated from both a medical, psychological, and social standpoint. TRANSINT:[id number] Voice Confirmation ID: [id number] DOCUMENT ID: [id number] CONSULT REPORT [id number] JETT MANN PETER MD at 1311 CC: [id number] DICTATION DATE: 03/27/17 1420 SALES REPRESENTATIVE CONSULTANT: 03/27/171999 ADM IN [facility] [address] [place] [address]
[2017-03-31 19:45] VITALS: BP 126/80
--- NOTE | 2017-04-01 02:11 | NUR ---
RECEIVED IN HALLWAY OUTSIDE OF NURSES STATION. CALM AND COOPERATIVE WITH CARE AND ASSESSMENTS. NO SIGNS OF HALLUCINATIONS. ALERT AND ORIENTED X3. ENCOURAGE TO EXPRESS NEEDS. RESTING EYES CLOSED AT THIS TIME. CONTINUE PLAN OF CARE
[2017-04-01 07:57] VITALS: BP 164/55
--- NOTE | 2017-04-01 08:38 | NUR ---
AWAKE AND ALERT IN DINING ROOM. CALM AND COOPERATIVE WITH ASSESSMENT AND CARE. COMPLIANT WITH TAKING PRESCRIBED MEDICATIONS. FALL PRECAUTIONS MAINTAINED. VSS. WILLL CONTINUE TO MONITOR. PATIENT IS SCHEDULED TO DISCHARGE TODAY. ALL DISCHARGE PAPERWORK REVIEWED WITH FAMILY AND APPOINTMENT SCHEDULED WITH PCP, DR. CARMEL LEE AT [facility]. ALL BELONGINGS BAGGED AND ACCOUNTED FOR.
--- NOTE | 2017-04-01 10:00 | NUR ---
PT IS A&O THIS AM. PT AM MEDS ADMINISTERED. PT IS COMPLIANT TO ALL MEDICATIONS EXCEPT LASIX. PT REFUSED LASIX DUE TO BEING DISCHARGED TODAY. PT STATES " I WILL TAKE IT WHEN I GET HOME." PT GIVEN ROCEPHIN INJECTION IN RT DORSOGLUTEAL. PT NOW DRESSING TO GO HOME. FAMILY WAITING. POC.
== END 2017-04-01 10:00 | disposition home or self-care (01) | DRG 881 ==
LOC: D.PSYCH 15:56
PROVIDERS: ADMIT Psychiatry & Neurology Psychiatry
DX: F32.9 Major depressive disorder, single episode, unspecified (principal); F05 Delirium due to known physiological condition; I69.951 Hemiplegia and hemiparesis following unspecified cerebrovascular disease affecting right dominant side; F41.9 Anxiety disorder, unspecified; Z74.09 Other reduced mobility; I11.0 Hypertensive heart disease with heart failure; I50.9 Heart failure, unspecified; K21.9 Gastro-esophageal reflux disease without esophagitis; R00.1 Bradycardia, unspecified; I48.91 Unspecified atrial fibrillation; D50.9 Iron deficiency anemia, unspecified; E03.9 Hypothyroidism, unspecified; E53.8 Deficiency of other specified B group vitamins; E55.9 Vitamin D deficiency, unspecified; J31.0 Chronic rhinitis

== ENCOUNTER 2017-12-01 12:09 | Day surgery (SDC) | payer MEDICARE, OTHER ==
[~2017-12-01] VITALS: Ht 167.6 cm; Wt 106.8 kg
--- NOTE | ~2017-12-01 | OP ---
PATIENT NAME: JETT MANN MEDICAL RECORD: [id number] :43 LOCATION:[facility] ADMISSION DATE: SURGEON: JOSEFINA LAWRENCE DO DATE OF OPERATION: 12/01/2017 PROCEDURE: EGD with biopsies. INDICATIONS FOR PROCEDURE: Dysphagia, heartburn, nausea and vomiting, epigastric abdominal pain. SCOPE: Olympus video gastroscope. MEDICATIONS: Propofol 100 mg IV per anesthesia. ESTIMATED BLOOD LOSS: Minimal. COMPLICATIONS: None. FINDINGS: Informed consent was given. The patient was made comfortable with the above medication. After reaching an adequate level of sedation by slow IV push, the patient was placed on her left side. The endoscope was then advanced under direct visualization through the mouth to the Felipe limb of the jejunum to approximately 40 cm from the incisors. The upper, middle, and lower thirds of the esophagus appeared normal. At the GE junction, there was some mild evidence of LA class A reflux-induced esophagitis. The endoscope was advanced beyond the GE junction into the gastric pouch. At this site, there was evidence of gastritis with the appearance of erythema, granularity, friability, and patchy erosions. There was evidence of prior intervention in the form of a Felipe-en-Y gastric bypass. [place] and sutures could be visualized. Random gastric biopsies were taken to submit for histology and rule out the presence of H. pylori. The endoscope was advanced beyond the anastomotic site into the jejunum, which appeared normal down to approximately 40 cm. The endoscope was then withdrawn back up into the esophagus and mid esophageal biopsies were taken with cold forceps to rule out eosinophilic esophagitis based on her complaint of dysphagia. The endoscope was then withdrawn from the patient. The patient tolerated the procedure well and there were no complications. IMPRESSION: 1. LA class A reflux-induced esophagitis. 2. Gastritis. 3. Prior Felipe-en-Y gastric bypass procedure. PLAN AND RECOMMENDATIONS: 1. Discharge home when recovery parameters are met. 2. GERD diet and reflux precautions as well as a gastroparesis diet consisting of smaller and more frequent meals. 3. Start Protonix or equivalent PPI 40 mg daily times 8 weeks. 4. Carafate suspension 1 gram up to q.i.d. for 10 days. 5. Proceed with colonoscopy. 6. If symptoms fail to improve, we will work up further with consideration of an upper GI and small bowel follow through. TRANSINT:[id number] Voice Confirmation ID: [id number] DOCUMENT ID: [id number] OPERATIVE REPORT [id number] JETT MANN NATHAN A DO at 1524 CC: [id number] DICTATION DATE: 12/01/17 1302 COMPUTER CONSULTANT: 12/01/17 1312 [facility] 12/01/17 [place] [id number] [place] [id number]
[2017-12-01 11:42] VITALS: BP 113/72; Ht 167.6 cm; Wt 106.8 kg
[2017-12-01 12:01] LABS: BASOPHILS 0.4 % (0-2); HEMOGLOBIN 11.3 g/dL (12-16); IMMATURE GRANULOCYTES 0.2 % (0-5); LYMPHOCYTES 28.6 % (15-50); MCH 28.9 pg (26.0-34.0); MCHC 29.7 g/dL (31.0-37.0); MCV 97.2 fL (80.0-100.0); MEAN PLATELET VOLUME 10.1 fL (7.4-10.4); MONOCYTES 16.8 % (2-11); RBC 3.91 10x6/uL (4.00-5.40); RDW 15.3 % (11.5-14.5); WBC 4.5 10x3/uL (4.8-10.8)
[2017-12-01 12:02] LABS: PLATELET COUNT 226 10x3/uL (130-400)
[2017-12-01 12:08] LABS: INR 1.05 (0.85-1.17); PROTIME 13.3 SECONDS (11.6-15.0)
[2017-12-01 12:09] LABS: APTT 29.5 SECONDS (22.8-39.4)
[~2017-12-01 12:09] MED LIST changes: +COUMADIN1 MG PO; +COUMADIN6 MG PO; +HYDROCODON-ACE1 EAC7 PO
[2017-12-01 12:14] LABS: ANION GAP 11.1 mmol/L (8-16); CALCIUM 8.9 mg/dL (8.5-10.1); CARBON DIOXIDE 31.8 mmol/L (21.0-32.0); CREATININE - SERUM 1.1 mg/dL (0.6-1.3); POTASSIUM - SERUM 3.9 mmol/L (3.5-5.1)
== END 2017-12-01 14:30 | disposition home or self-care (01) ==
LOC: D.OPS 12:09
PROVIDERS: Anesthesiology
DX: R10.13 Epigastric pain (principal); R13.10 Dysphagia, unspecified; R11.2 Nausea with vomiting, unspecified; K21.0 Gastro-esophageal reflux disease with esophagitis; K29.70 Gastritis, unspecified, without bleeding; I25.10 Atherosclerotic heart disease of native coronary artery without angina pectoris; I10 Essential (primary) hypertension; I48.91 Unspecified atrial fibrillation; E03.9 Hypothyroidism, unspecified; Z95.5 Presence of coronary angioplasty implant and graft; Z01.812 Encounter for preprocedural laboratory examination

== ENCOUNTER 2017-12-03 11:43 | Day surgery (SDC) | payer MEDICARE, OTHER ==
[~2017-12-03] VITALS: Ht 167.6 cm; Wt 106.8 kg
--- NOTE | ~2017-12-03 | OP ---
PATIENT NAME: JETT MANN MEDICAL RECORD: [id number] :43 LOCATION:D.OPS ADMISSION DATE: SURGEON: JOSEFINA LAWRENCE DO DATE OF OPERATION: 12/03/2017 PROCEDURE: Colonoscopy with polypectomy. INDICATION FOR PROCEDURE: Stool DNA-based colorectal cancer screening positive, hematochezia. SCOPE: Olympus video pediatric colonoscope. MEDICATIONS: Propofol IV per anesthesia. Please see anesthesia report. ESTIMATED BLOOD LOSS: Minimal. COMPLICATIONS: None. FINDINGS: Informed consent was given. The patient was made comfortable with the above medication. After reaching an adequate level of sedation by slow IV push, the patient was placed on her left side. A digital rectal examination was performed and was normal. The endoscope was then advanced under direct visualization through the rectum to the cecum with visualization of the appendiceal orifice and the ileocecal valve. The endoscope was slowly withdrawn and mucosa was carefully examined. The prep quality was fair. Difficulty of the procedure was somewhat difficult due to the patient's restless leg syndrome and inability to remain still, making significant movement within the bowel and the endoscope. There was a single polyp located on today's examination. It was a benign-appearing sessile polyp, which measured approximately 4-5 mm in diameter. It was located in the transverse colon. It was removed using a hot snare in one piece and completely retrieved. There was moderate diverticulosis of distal descending colon and sigmoid colon. Retroflexion was performed in the rectum with visualization of grade I internal hemorrhoids without bleeding. The endoscope was then withdrawn from the patient. The patient tolerated the procedure well and there were no complications. The withdrawal time was 18 minutes. IMPRESSION: 1. Single transverse polyp removed using hot snare. 2. Diverticulosis of distal descending and sigmoid colon of moderate severity. 3. Grade I internal hemorrhoids without bleeding. PLAN AND RECOMMENDATIONS: 1. Discharge home when recovery parameters are met. 2. Followup biopsy specimen results. 3. High-fiber diet. 4. Continue current medications. 5. Recall colonoscopy in 5 years for surveillance based on personal history of polyps. TRANSINT:[id number] Voice Confirmation ID: [id number] DOCUMENT ID: [id number] OPERATIVE REPORT [id number] JETT MANN JOSEFINA LAWRENCE DO at 0458 CC: [id number] DICTATION DATE: 12/03/17 1422 MD PEDIATRIC ALLERGIST: 12/03/17 1458 [facility] 12/03/17 [place] [id number] [place] [address]
[2017-12-03] MEDS ORDERED: NEXIUM20 MG (12:20)
[2017-12-03 12:25] VITALS: BP 134/84; Ht 167.6 cm; Wt 106.8 kg
[2017-12-03 13:00] LABS: HEMATOCRIT 35.8 % (36.0-48.0); HEMOGLOBIN 11.5 g/dL (12-16); MCH 29.9 pg (26.0-34.0); MCHC 32.1 g/dL (31.0-37.0); MEAN PLATELET VOLUME 10.2 fL (7.4-10.4); RBC 3.84 10x6/uL (4.00-5.40); RDW 15.3 % (11.5-14.5); WBC 4.6 10x3/uL (4.8-10.8)
[2017-12-03 13:04] LABS: MCV 93.2 fL (80.0-100.0)
== END 2017-12-03 15:40 | disposition home or self-care (01) ==
LOC: D.OPS 11:43
PROVIDERS: Anesthesiology
DX: D12.3 Benign neoplasm of transverse colon (principal); K57.30 Diverticulosis of large intestine without perforation or abscess without bleeding; K64.0 First degree hemorrhoids; Z01.812 Encounter for preprocedural laboratory examination

== ENCOUNTER 2018-03-27 12:39 | Inpatient (IN) | payer MEDICARE, OTHER ==
[2018-03-27] VITALS (8 sets, daily range): BP systolic 127–156; BP diastolic 60–94; BMI 38.8
[~2018-03-27] VITALS: Ht 167.6 cm; Wt 109.1 kg
[~2018-03-27 12:39] MED LIST changes: +NEXIUM20 MG PO
[2018-03-27 13:16] LABS: BASOPHILS 0.4 % (0-2); EOSINOPHILS 2.1 % (0-7); HEMATOCRIT 39.4 % (36.0-48.0); HEMOGLOBIN 11.7 g/dL (12-16); IMMATURE GRANULOCYTES 0.2 % (0-5); LYMPHOCYTES 14.2 % (15-50); MCH 29.9 pg (26.0-34.0); MCHC 29.7 g/dL (31.0-37.0); MCV 100.8 fL (80.0-100.0); MEAN PLATELET VOLUME 10.2 fL (7.4-10.4); MONOCYTES 11.9 % (2-11); NEUTROPHILS 71.2 % (40-80); PLATELET COUNT 233 10x3/uL (130-400); RBC 3.91 10x6/uL (4.00-5.40); RDW 18.4 % (11.5-14.5); WBC 5.6 10x3/uL (4.8-10.8)
[2018-03-27 13:22] LABS: ALKALINE PHOSPHATASE 157 U/L (46-116); ALT (SGPT) 41 U/L (10-68); BILIRUBIN - TOTAL 0.31 mg/dL (0.2-1.3); CALC OSMOLALITY 289 mosm/kg (275-300); CALCIUM 8.2 mg/dL (8.5-10.1); CARBON DIOXIDE 33.3 mmol/L (21.0-32.0); CHLORIDE - SERUM 109 mmol/L (98-107); CREATININE - SERUM 0.9 mg/dL (0.6-1.3); GLUCOSE 99 mg/dL (74-106); POTASSIUM - SERUM 3.9 mmol/L (3.5-5.1); PROTEIN - SERUM 6.6 g/dL (6.4-8.2); SODIUM 146 mmol/L (136-145); UREA NITROGEN 11 mg/dL (7-18); eGFR NON AFRICAN AMERICAN 65 mL/min (90-120)
[2018-03-27 13:25] LABS: AMYLASE - SERUM 21 U/L (25-115); CREATINE KINASE 156 UL (21-215); LIPASE 78 U/L (73-393); MAGNESIUM - SERUM 1.9 mg/dL (1.8-2.4)
[2018-03-27 13:26] LABS: TROPONIN-I < 0.017 ng/mL (0.000-0.060)
[2018-03-27 14:07] LABS: UDS - AMPHET NEGATIVE QUAL (NEGATIVE); UDS - BARB NEGATIVE QUAL (NEGATIVE); UDS - BENZO POSITIVE QUAL (NEGATIVE); UDS - COCAINE NEGATIVE QUAL (NEGATIVE); UDS - OPIATE POSITIVE QUAL (NEGATIVE); UDS - PCP NEGATIVE QUAL (NEGATIVE); UDS - THC NEGATIVE QUAL (NEGATIVE)
[2018-03-27 14:15] LABS: APPEARANCE HAZY (CLEAR); BILIRUBIN NEGATIVE (NEGATIVE); COLOR STRAW (YELLOW); GLUCOSE NEGATIVE (NEGATIVE); KETONE NEGATIVE (NEGATIVE); NITRITE NEGATIVE (NEGATIVE); PROTEIN NEGATIVE (NEGATIVE); SPECIFIC GRAVITY 1.005 (1.005-1.020); UROBILINOGEN NORMAL (NORMAL)
[2018-03-27 14:16] LABS: BACTERIA MANY /hpf (NONE SEEN); EPITHELIAL CELLS 0-5 /hpf (0-5); MUCUS <1+ /lpf (NONE SEEN); RED CELLS - URINE 0-5 /hpf (0-5); WHITE CELLS - URINE RARE /hpf (0-5)
[2018-03-27 17:36] LABS: CKMB 3.6 U/L (0.0-3.6); CREATINE KINASE 141 UL (21-215)
[2018-03-27 17:41] LABS: TROPONIN-I < 0.017 ng/mL (0.000-0.060)
[2018-03-27] MEDS ORDERED: LASIX80 MG PO (22:04)
[2018-03-27] MEDS ORDERED: ELIQUIS5 MG PO (22:14)
[2018-03-27] MEDS ORDERED: XANAX1 MG PO (23:10)
[2018-03-27] MEDS ORDERED: BUPROPION HCL150 M1 PO (23:11)
[2018-03-27] MEDS ORDERED: BAYER CHEWABLE81 MG PO (23:11)
[2018-03-27 23:37] LABS: CKMB 3.4 U/L (0.0-3.6); CREATINE KINASE 128 UL (21-215)
[2018-03-27 23:38] LABS: TROPONIN-I < 0.017 ng/mL (0.000-0.060)
[2018-03-28 04:00] VITALS: BP 131/76
[2018-03-28 05:34] LABS: BASOPHILS 0.2 % (0-2); EOSINOPHILS 0.8 % (0-7); HEMATOCRIT 46.6 % (36.0-48.0); IMMATURE GRANULOCYTES 0.2 % (0-5); LYMPHOCYTES 8.8 % (15-50); MCH 30.8 pg (26.0-34.0); MCHC 30.7 g/dL (31.0-37.0); MCV 100.4 fL (80.0-100.0); MEAN PLATELET VOLUME 10.3 fL (7.4-10.4); MONOCYTES 7.8 % (2-11); NEUTROPHILS 82.2 % (40-80); RBC 4.64 10x6/uL (4.00-5.40); RDW 18.3 % (11.5-14.5)
[2018-03-28 05:40] LABS: HEMOGLOBIN 14.3 g/dL (12-16); PLATELET COUNT 321 10x3/uL (130-400); WBC 12.7 10x3/uL (4.8-10.8)
[2018-03-28 06:36] LABS: ANION GAP 13.3 mmol/L (8-16); BILIRUBIN - TOTAL 0.63 mg/dL (0.2-1.3); CALCIUM 9.2 mg/dL (8.5-10.1); CARBON DIOXIDE 31.4 mmol/L (21.0-32.0); MAGNESIUM - SERUM 1.8 mg/dL (1.8-2.4); POTASSIUM - SERUM 3.7 mmol/L (3.5-5.1); PROTEIN - SERUM 8.1 g/dL (6.4-8.2)
[2018-03-28 07:00] LABS: CKMB 3.1 U/L (0.0-3.6); CREATINE KINASE 150 UL (21-215)
[2018-03-28 07:07] LABS: TROPONIN-I < 0.017 ng/mL (0.000-0.060)
[2018-03-28 07:50] VITALS: BP 150/75
[2018-03-28 11:43] VITALS: Ht 167.6 cm; Wt 109.1 kg
[2018-03-28 12:19] VITALS: BP 140/68
[2018-03-28 16:44] VITALS: BP 139/80
[2018-03-28 19:37] VITALS: BP 135/63
[2018-03-28 23:16] VITALS: BP 167/65
[2018-03-29 04:18] VITALS: BP 152/86
[2018-03-29 06:35] LABS: BASOPHILS 0.2 % (0-2); EOSINOPHILS 0.7 % (0-7); HEMATOCRIT 39.8 % (36.0-48.0); HEMOGLOBIN 12.2 g/dL (12-16); IMMATURE GRANULOCYTES 0.3 % (0-5); LYMPHOCYTES 14.9 % (15-50); MCH 30.3 pg (26.0-34.0); MCHC 30.7 g/dL (31.0-37.0); MCV 98.8 fL (80.0-100.0); MEAN PLATELET VOLUME 10.5 fL (7.4-10.4); MONOCYTES 12.3 % (2-11); NEUTROPHILS 71.6 % (40-80); RBC 4.03 10x6/uL (4.00-5.40); RDW 17.9 % (11.5-14.5)
[2018-03-29 06:43] LABS: PLATELET COUNT 128 10x3/uL (130-400); WBC 6.1 10x3/uL (4.8-10.8)
[2018-03-29 07:28] LABS: ANION GAP 8.1 mmol/L (8-16); BILIRUBIN - TOTAL 0.83 mg/dL (0.2-1.3); CALCIUM 8.5 mg/dL (8.5-10.1); CARBON DIOXIDE 32.4 mmol/L (21.0-32.0); CREATININE - SERUM 0.8 mg/dL (0.6-1.3); MAGNESIUM - SERUM 1.8 mg/dL (1.8-2.4); POTASSIUM - SERUM 3.5 mmol/L (3.5-5.1)
[2018-03-29 08:23] VITALS: BP 106/52
[2018-03-29 11:05] VITALS: BP 110/58
[2018-03-29 15:02] VITALS: BP 121/62
[2018-03-29 19:40] VITALS: BP 144/80
[2018-03-29 22:36] VITALS: BP 136/90
[2018-03-30 04:34] LABS: BASOPHILS 0.2 % (0-2); EOSINOPHILS 1.2 % (0-7); HEMATOCRIT 38.3 % (36.0-48.0); HEMOGLOBIN 11.7 g/dL (12-16); IMMATURE GRANULOCYTES 0.2 % (0-5); LYMPHOCYTES 15.5 % (15-50); MCH 30.2 pg (26.0-34.0); MCHC 30.5 g/dL (31.0-37.0); MEAN PLATELET VOLUME 10.6 fL (7.4-10.4); MONOCYTES 12.8 % (2-11); NEUTROPHILS 70.1 % (40-80); RBC 3.87 10x6/uL (4.00-5.40); RDW 17.7 % (11.5-14.5); WBC 5.8 10x3/uL (4.8-10.8)
[2018-03-30 04:46] LABS: PLATELET COUNT 254 10x3/uL (130-400)
[2018-03-30 05:07] LABS: ALBUMIN 2.7 g/dL (3.4-5.0); ALKALINE PHOSPHATASE 144 U/L (46-116); ALT (SGPT) 33 U/L (10-68); BILIRUBIN - TOTAL 0.61 mg/dL (0.2-1.3); CALC OSMOLALITY 286 mosm/kg (275-300); CALCIUM 8.1 mg/dL (8.5-10.1); CARBON DIOXIDE 32.2 mmol/L (21.0-32.0); CHLORIDE - SERUM 106 mmol/L (98-107); CREATININE - SERUM 0.7 mg/dL (0.6-1.3); GLUCOSE 118 mg/dL (74-106); MAGNESIUM - SERUM 1.9 mg/dL (1.8-2.4); POTASSIUM - SERUM 3.8 mmol/L (3.5-5.1); PROTEIN - SERUM 6.5 g/dL (6.4-8.2); SODIUM 144 mmol/L (136-145); UREA NITROGEN 11 mg/dL (7-18); eGFR NON AFRICAN AMERICAN 87 mL/min (90-120)
[2018-03-30 06:14] VITALS: BP 149/72
[2018-03-30 07:46] VITALS: BP 137/75
[2018-03-30 12:45] VITALS: BP 148/92
[2018-03-30 20:03] VITALS: BP 135/79
[2018-03-31 04:00] VITALS: BP 143/71
[2018-03-31 05:03] LABS: BASOPHILS 0.2 % (0-2); EOSINOPHILS 0.5 % (0-7); HEMATOCRIT 38.6 % (36.0-48.0); HEMOGLOBIN 11.7 g/dL (12-16); IMMATURE GRANULOCYTES 0.2 % (0-5); MCH 30.2 pg (26.0-34.0); MCHC 30.3 g/dL (31.0-37.0); MCV 99.5 fL (80.0-100.0); MEAN PLATELET VOLUME 10.4 fL (7.4-10.4); MONOCYTES 12.3 % (2-11); NEUTROPHILS 72.8 % (40-80); PLATELET COUNT 244 10x3/uL (130-400); RBC 3.88 10x6/uL (4.00-5.40); RDW 17.1 % (11.5-14.5); WBC 6.1 10x3/uL (4.8-10.8)
[2018-03-31 05:51] LABS: ALBUMIN 2.7 g/dL (3.4-5.0); ANION GAP 10.1 mmol/L (8-16); BILIRUBIN - TOTAL 0.46 mg/dL (0.2-1.3); CALCIUM 8.4 mg/dL (8.5-10.1); CARBON DIOXIDE 32.5 mmol/L (21.0-32.0); CREATININE - SERUM 0.8 mg/dL (0.6-1.3); MAGNESIUM - SERUM 1.9 mg/dL (1.8-2.4); POTASSIUM - SERUM 3.6 mmol/L (3.5-5.1); PROTEIN - SERUM 6.5 g/dL (6.4-8.2)
[2018-03-31 11:37] VITALS: BP 150/69
[2018-03-31 15:20] VITALS: BP 128/54
[2018-03-31 20:17] VITALS: BP 132/68
[2018-04-01 04:51] LABS: BASOPHILS 0.2 % (0-2); EOSINOPHILS 1.4 % (0-7); HEMATOCRIT 39.8 % (36.0-48.0); HEMOGLOBIN 12.3 g/dL (12-16); LYMPHOCYTES 25.1 % (15-50); MCH 30.4 pg (26.0-34.0); MCHC 30.9 g/dL (31.0-37.0); MCV 98.5 fL (80.0-100.0); MONOCYTES 16.2 % (2-11); NEUTROPHILS 57.1 % (40-80); PLATELET COUNT 254 10x3/uL (130-400); RBC 4.04 10x6/uL (4.00-5.40)
[2018-04-01 04:55] VITALS: BP 128/57
[2018-04-01 05:10] LABS: ALKALINE PHOSPHATASE 133 U/L (46-116); BILIRUBIN - TOTAL 0.49 mg/dL (0.2-1.3); CALC OSMOLALITY 280 mosm/kg (275-300); CALCIUM 8.4 mg/dL (8.5-10.1); CARBON DIOXIDE 32.4 mmol/L (21.0-32.0); CHLORIDE - SERUM 104 mmol/L (98-107); CREATININE - SERUM 0.7 mg/dL (0.6-1.3); GLUCOSE 98 mg/dL (74-106); POTASSIUM - SERUM 3.6 mmol/L (3.5-5.1); PROTEIN - SERUM 6.9 g/dL (6.4-8.2); SODIUM 141 mmol/L (136-145); UREA NITROGEN 13 mg/dL (7-18); eGFR NON AFRICAN AMERICAN 87 mL/min (90-120)
[2018-04-01 05:11] LABS: ALT (SGPT) 44 U/L (10-68)
[2018-04-01 07:30] VITALS: BP 146/52
[2018-04-01 11:30] VITALS: BP 136/72
[2018-04-01 15:36] VITALS: BP 128/91
[2018-04-01] MEDS ORDERED: BETAPACE 80 MG80 MG PO (15:41)
== END 2018-04-01 18:19 | DRG 309 ==
LOC: D.ER 12:39 → D.EDHOLD 15:10 → D.M3 15:10
PROVIDERS: Family Medicine; Family Medicine Adult Medicine
DX: I48.91 Unspecified atrial fibrillation (principal); I69.351 Hemiplegia and hemiparesis following cerebral infarction affecting right dominant side; R55 Syncope and collapse; I10 Essential (primary) hypertension; K21.9 Gastro-esophageal reflux disease without esophagitis

== ENCOUNTER 2018-04-01 19:53 | Inpatient (IN) | payer MEDICARE, OTHER ==
[~2018-04-01] VITALS: Ht 167.6 cm; Wt 108.9 kg
--- NOTE | ~2018-04-01 | RHP ---
PATIENT: JETT INIGUEZ MEDICAL RECORD: [id number] ACCOUNT: [id number] LOCATION:[facility] [place] : 44 ADMISSION DATE: 04/01/18 REHABILITATION HISTORY AND PHYSICAL EXAMINATION POST ADMISSION PHYSICIAN EXAMINATION DATE OF ADMISSION: 04/01/2018 ADMITTING DIAGNOSES: Syncope and collapse. HISTORY OF PRESENT ILLNESS: The patient is admitted to inpatient rehab under a cardiac impairment group with diagnoses of syncope and collapse. She is a 72-year-old female patient with history of coronary artery disease and atrial fib, followed by the [facility]. She is doing anticoagulation for atrial fib, cardiology not sure if she goes in and out of rhythm. Dr. Potts reports that she has been on metoprolol for rate control. She is on digoxin at some point, but there was concern that this was causing dizziness, so it was discontinued. She is not currently on any antiarrhythmic therapy, states that she is always tachycardic. Apparently on 03/26/2018, she had 2 falls, one in the morning, shortly after she got out of bed. The second occurred when she went to the bathroom. States that she was on her way back to her bed when she blacked out and fell. When she arrived to the emergency room, she was somewhat lethargic. CT showed no evidence of intracranial bleed. Prior to admission, Ms. Iniguez was driving herself to [employer] to purchase her groceries and meds, and was moderately independent with rolling walker. Currently, max assist with ambulation of 35 feet with a rolling walker and very unsteady with her gait. She has significant neuropathy in both legs causing her severe pain, which require medical management. She is on new onset need for O2 at 4 liters and needs to maintain on telemetry during her rehab stay. She slipped previously moderately independent with ADLs, but is currently min-to-mod assist with ADLs. She has 1 step to enter her home. She has been on no home O2 and reports that her home is very small and would not be suitable for large DME, which will cause some barriers to discharged. She will require intensive therapy in order to return back to her prior level of functioning. COMORBIDITIES: In this patient include CHF, atrial fib, neuropathic pain, hypokalemia, coronary artery disease, history of stents, iron-deficient anemia, hypothyroidism, gastroesophageal reflux disease, allergic rhinitis, overactive bladder, history of cerebrovascular accident with residual right-sided weakness, depression, anxiety, altered mental status and weakness. PAST MEDICAL HISTORY: Significant for CVA, coronary artery disease, atrial fib, hypertension, got a history of CVA and neuropathy, got a history of CHF, atrial fib, coronary artery disease. Got a history of acid reflux, diarrhea, depression and anxiety. PAST SURGICAL HISTORY: Includes gallbladder surgery, back surgery, knee surgery, ACF, lumbar fusion and she has had gastric bypass in the past. ALLERGIES: CYCLOBENZAPRINE AND PENICILLIN. CURRENT MEDICATIONS: Include vitamin D 50,000 units twice weekly. She is on B12 1000 mcg every 30 days of an injection. She is on Requip 3 mg t.i.d. She is on Protonix 40 mg daily, lisinopril 5 mg daily, metoprolol 50 mg daily, Synthroid 150 mcg daily, Flonase 1 spray daily, aspirin 81 mg daily, sotalol 80 HISTORY AND PHYSICAL [id number] JOHNATHAN,JETT J mg b.i.d., Nitrostat p.r.n., [place] 5/325 one tab every 4 hours p.r.n., Lomotil 1 tab b.i.d. p.r.n. diarrhea, Eliquis 5 mg b.i.d., and MiraLax 17 g in 8 ounces of water daily. HABITS: No alcohol or tobacco use. FAMILY HISTORY: Noncontributory. SOCIAL HISTORY: The patient hopes to return back home and get back to her prior level of functioning. REVIEW OF SYSTEMS: GENERAL: Does complain of weakness and fatigue. HEENT: Denies cold, cough, or congestion. CARDIOVASCULAR: Denies any chest pain. LUNGS: Does complain of shortness of breath especially with exertion. PHYSICAL EXAMINATION: VITAL SIGNS: Stable. She is afebrile. GENERAL: A morbidly obese female, in no distress, alert upon exam. HEENT: Normocephalic and atraumatic. Mucosa moist. NECK: Supple. No lymphadenopathy. LUNGS: Clear at this time. HEART: Irregular rate and rhythm. ABDOMEN: Benign. EXTREMITIES: No clubbing, cyanosis or edema. NEUROLOGIC: Does have noted weakness. LABORATORY DATA: White count is 6.2, H&H of 11.5 and 36.9 and platelet count is 222. Her sodium is 143, potassium 3.5, BUN and creatinine of 15 and 0.8. Blood sugar is noted to be 75. ASSESSMENT: This is a 72-year-old female patient admitted to rehab with a working diagnosis of cardiac induced syncope and collapse. The patient has potential to make improvement. We instituted the following multidisciplinary therapies including, but not limited to physical, occupational, respiratory, speech, nutritional services, prosthetics and orthotics. Given her complex medical condition and risk for more complications, rehabilitation services cannot be provided at a low level of care such as a retirement facility. PLAN: 1. Admit to [facility] rehab for intensive inpatient therapy to include the following disciplines: A. Physical therapy to improve gait, all transfer skills and bed mobility to a modified independent level. B. Occupational therapy to a modified independent level. C. Case management to assist with discharge planning and placement options. D. Nutrition to assist with nutritional needs. E. Rehabilitation nursing to assist in monitoring the patient's underlying medical conditions and to assist with any type of bowel or bladder management. 2. The patient's current medication and medical care will be continued. 3. Placed on standard fall precautions. 4. The patient's estimated length of stay is approximately 7 to 10 days. 5. Discuss this patient during care team staff meeting this week. HISTORY AND PHYSICAL [id number] JETT INIGUEZ TRANSINT:[id number] Voice Confirmation ID: [id number] DOCUMENT ID: [id number] PRESLEY notes whether there has been none or any medical/functional change since admission: - No change since prescreen. PRESLEY attests patient continues to be appropriate for IRF: - Continues to be appropriate. HELENA MCKEON MD at 1809 CC: [id number] DICTATION DATE: 04/02/18 0848 DUST COLLECTOR OPERATOR: 04/02/18 0947 ADM IN [facility] [address] [place] [id number]
[~2018-04-01 19:53] MED LIST changes: +BAYER CHEWABLE81 MG PO; +BETAPACE 80 MG80 MG PO; +BUPROPION HCL150 M1 PO; +ELIQUIS5 MG PO; +LASIX80 MG PO
[2018-04-01 22:33] VITALS: BP 159/90; BMI 38.8
[2018-04-02 05:48] LABS: BASOPHILS 0.3 % (0-2); EOSINOPHILS 1.3 % (0-7); HEMATOCRIT 36.9 % (36.0-48.0); HEMOGLOBIN 11.5 g/dL (12-16); IMMATURE GRANULOCYTES 0.2 % (0-5); LYMPHOCYTES 14.7 % (15-50); MCH 30.7 pg (26.0-34.0); MCHC 31.2 g/dL (31.0-37.0); MCV 98.4 fL (80.0-100.0); MEAN PLATELET VOLUME 10.3 fL (7.4-10.4); MONOCYTES 17.4 % (2-11); NEUTROPHILS 66.1 % (40-80); PLATELET COUNT 222 10x3/uL (130-400); RBC 3.75 10x6/uL (4.00-5.40); RDW 17.1 % (11.5-14.5); WBC 6.2 10x3/uL (4.8-10.8)
[2018-04-02 06:15] LABS: ANION GAP 8.7 mmol/L (8-16); CALCIUM 8.4 mg/dL (8.5-10.1); CARBON DIOXIDE 29.8 mmol/L (21.0-32.0); CREATININE - SERUM 0.8 mg/dL (0.6-1.3); POTASSIUM - SERUM 3.5 mmol/L (3.5-5.1)
[2018-04-02 08:04] VITALS: BP 144/66
[2018-04-02 13:43] VITALS: BMI 38.7
[2018-04-02 18:00] VITALS: BP 164/91
[2018-04-03 06:47] LABS: BASOPHILS 0.4 % (0-2); EOSINOPHILS 1.6 % (0-7); HEMOGLOBIN 11.2 g/dL (12-16); IMMATURE GRANULOCYTES 0.2 % (0-5); LYMPHOCYTES 19.4 % (15-50); MCH 30.4 pg (26.0-34.0); MCHC 30.3 g/dL (31.0-37.0); MCV 100.3 fL (80.0-100.0); MEAN PLATELET VOLUME 10.6 fL (7.4-10.4); MONOCYTES 16.1 % (2-11); NEUTROPHILS 62.3 % (40-80); PLATELET COUNT 207 10x3/uL (130-400); RBC 3.69 10x6/uL (4.00-5.40); RDW 17.1 % (11.5-14.5); WBC 5.1 10x3/uL (4.8-10.8)
[2018-04-03 06:55] LABS: ANION GAP 2.8 mmol/L (8-16); CALCIUM 8.4 mg/dL (8.5-10.1); CARBON DIOXIDE 34.7 mmol/L (21.0-32.0); CREATININE - SERUM 0.9 mg/dL (0.6-1.3); POTASSIUM - SERUM 3.5 mmol/L (3.5-5.1)
[2018-04-03 08:13] VITALS: BP 148/61
[2018-04-03 18:00] VITALS: BP 135/67
[2018-04-04 08:00] VITALS: BP 161/93
[2018-04-05 08:00] VITALS: BP 164/89
[2018-04-06 04:38] VITALS: BP 132/78
[2018-04-06 06:32] LABS: BASOPHILS 0.2 % (0-2); EOSINOPHILS 0.4 % (0-7); HEMATOCRIT 36.2 % (36.0-48.0); HEMOGLOBIN 11.4 g/dL (12-16); IMMATURE GRANULOCYTES 0.2 % (0-5); LYMPHOCYTES 12.1 % (15-50); MCH 30.7 pg (26.0-34.0); MCHC 31.5 g/dL (31.0-37.0); MCV 97.6 fL (80.0-100.0); NEUTROPHILS 72.1 % (40-80); PLATELET COUNT 181 10x3/uL (130-400); RBC 3.71 10x6/uL (4.00-5.40); RDW 16.7 % (11.5-14.5); WBC 5.5 10x3/uL (4.8-10.8)
[2018-04-06 06:39] LABS: CALC OSMOLALITY 273 mosm/kg (275-300); CALCIUM 8.1 mg/dL (8.5-10.1); CHLORIDE - SERUM 100 mmol/L (98-107); CREATININE - SERUM 0.7 mg/dL (0.6-1.3); GLUCOSE 109 mg/dL (74-106); POTASSIUM - SERUM 3.6 mmol/L (3.5-5.1); SODIUM 137 mmol/L (136-145); UREA NITROGEN 11 mg/dL (7-18); eGFR NON AFRICAN AMERICAN 87 mL/min (90-120)
[2018-04-06 08:00] VITALS: BP 130/89
[2018-04-06 20:00] VITALS: BP 121/71
[2018-04-07 08:00] VITALS: BP 151/85
[2018-04-07 19:00] VITALS: BP 101/83
[2018-04-08 06:30] LABS: BASOPHILS 0.2 % (0-2); EOSINOPHILS 1.3 % (0-7); HEMATOCRIT 35.7 % (36.0-48.0); HEMOGLOBIN 11.1 g/dL (12-16); IMMATURE GRANULOCYTES 0.2 % (0-5); MCH 30.2 pg (26.0-34.0); MCHC 31.1 g/dL (31.0-37.0); MCV 97.3 fL (80.0-100.0); NEUTROPHILS 68.3 % (40-80); PLATELET COUNT 206 10x3/uL (130-400); RBC 3.67 10x6/uL (4.00-5.40); RDW 16.6 % (11.5-14.5); WBC 5.4 10x3/uL (4.8-10.8)
[2018-04-08 06:50] LABS: CALC OSMOLALITY 273 mosm/kg (275-300); CALCIUM 7.8 mg/dL (8.5-10.1); CARBON DIOXIDE 32.5 mmol/L (21.0-32.0); CHLORIDE - SERUM 100 mmol/L (98-107); CREATININE - SERUM 0.7 mg/dL (0.6-1.3); GLUCOSE 105 mg/dL (74-106); POTASSIUM - SERUM 3.5 mmol/L (3.5-5.1); SODIUM 137 mmol/L (136-145); UREA NITROGEN 13 mg/dL (7-18); eGFR NON AFRICAN AMERICAN 87 mL/min (90-120)
[2018-04-08 08:00] VITALS: BP 161/99
[2018-04-08 19:00] VITALS: BP 162/93
[2018-04-09 07:53] VITALS: BP 155/85
[2018-04-09 19:00] VITALS: BP 154/86
[2018-04-10 06:25] LABS: BASOPHILS 0.1 % (0-2); EOSINOPHILS 0.5 % (0-7); HEMATOCRIT 34.5 % (36.0-48.0); HEMOGLOBIN 10.7 g/dL (12-16); IMMATURE GRANULOCYTES 0.1 % (0-5); MCH 30.3 pg (26.0-34.0); MCV 97.7 fL (80.0-100.0); MEAN PLATELET VOLUME 10.6 fL (7.4-10.4); MONOCYTES 10.9 % (2-11); NEUTROPHILS 78.4 % (40-80); PLATELET COUNT 222 10x3/uL (130-400); RBC 3.53 10x6/uL (4.00-5.40); RDW 16.8 % (11.5-14.5)
[2018-04-10 06:27] LABS: ANION GAP 10.5 mmol/L (8-16); CALCIUM 7.7 mg/dL (8.5-10.1); CARBON DIOXIDE 29.2 mmol/L (21.0-32.0); POTASSIUM - SERUM 3.7 mmol/L (3.5-5.1)
[2018-04-10 06:29] LABS: CREATININE - SERUM 0.9 mg/dL (0.6-1.3)
[2018-04-10 06:35] LABS: WBC 7.5 10x3/uL (4.8-10.8)
[2018-04-10 07:58] VITALS: BP 152/101
[2018-04-10 18:00] VITALS: BP 148/107
[2018-04-11 10:19] VITALS: BP 138/69
[2018-04-11 19:40] VITALS: BP 132/82
[2018-04-12 09:45] VITALS: BP 165/70
[2018-04-12 19:30] VITALS: BP 99/58
[2018-04-13 05:25] LABS: BASOPHILS 0.2 % (0-2); EOSINOPHILS 0.9 % (0-7); HEMATOCRIT 33.7 % (36.0-48.0); HEMOGLOBIN 10.5 g/dL (12-16); IMMATURE GRANULOCYTES 0.2 % (0-5); LYMPHOCYTES 10.7 % (15-50); MCH 30.5 pg (26.0-34.0); MCHC 31.2 g/dL (31.0-37.0); MEAN PLATELET VOLUME 9.9 fL (7.4-10.4); MONOCYTES 13.4 % (2-11); NEUTROPHILS 74.6 % (40-80); PLATELET COUNT 299 10x3/uL (130-400); RBC 3.44 10x6/uL (4.00-5.40); RDW 16.7 % (11.5-14.5)
[2018-04-13 05:47] LABS: ANION GAP 8.8 mmol/L (8-16); CALCIUM 7.9 mg/dL (8.5-10.1); CARBON DIOXIDE 29.9 mmol/L (21.0-32.0); CREATININE - SERUM 0.8 mg/dL (0.6-1.3); POTASSIUM - SERUM 4.7 mmol/L (3.5-5.1)
[2018-04-13 08:31] LABS: CKMB 1.9 U/L (0.0-3.6)
[2018-04-13 08:32] LABS: TROPONIN-I < 0.017 ng/mL (0.000-0.060)
[2018-04-13 09:11] VITALS: BP 104/76
[2018-04-13 18:00] VITALS: BP 158/70
[2018-04-14 06:49] LABS: BASOPHILS 0.1 % (0-2); EOSINOPHILS 1.1 % (0-7); HEMOGLOBIN 11.1 g/dL (12-16); IMMATURE GRANULOCYTES 0.4 % (0-5); LYMPHOCYTES 9.1 % (15-50); MCH 30.4 pg (26.0-34.0); MCHC 30.8 g/dL (31.0-37.0); MCV 98.6 fL (80.0-100.0); MEAN PLATELET VOLUME 10.1 fL (7.4-10.4); NEUTROPHILS 76.3 % (40-80); PLATELET COUNT 344 10x3/uL (130-400); RBC 3.65 10x6/uL (4.00-5.40); RDW 16.6 % (11.5-14.5); WBC 9.9 10x3/uL (4.8-10.8)
[2018-04-14 07:16] LABS: ANION GAP 6.7 mmol/L (8-16); CALCIUM 8.1 mg/dL (8.5-10.1); CARBON DIOXIDE 31.6 mmol/L (21.0-32.0); CREATININE - SERUM 0.8 mg/dL (0.6-1.3); POTASSIUM - SERUM 4.3 mmol/L (3.5-5.1)
[2018-04-14 07:47] VITALS: BP 157/85
[2018-04-14 19:00] VITALS: BP 152/77
[2018-04-15 06:56] LABS: BASOPHILS 0.1 % (0-2); EOSINOPHILS 0.9 % (0-7); HEMATOCRIT 33.4 % (36.0-48.0); HEMOGLOBIN 10.5 g/dL (12-16); IMMATURE GRANULOCYTES 0.2 % (0-5); MCH 30.6 pg (26.0-34.0); MCHC 31.4 g/dL (31.0-37.0); MCV 97.4 fL (80.0-100.0); MEAN PLATELET VOLUME 9.7 fL (7.4-10.4); MONOCYTES 16.6 % (2-11); NEUTROPHILS 75.2 % (40-80); PLATELET COUNT 333 10x3/uL (130-400); RBC 3.43 10x6/uL (4.00-5.40); RDW 16.5 % (11.5-14.5); WBC 9.8 10x3/uL (4.8-10.8)
[2018-04-15 07:10] LABS: CALC OSMOLALITY 260 mosm/kg (275-300); CALCIUM 7.7 mg/dL (8.5-10.1); CHLORIDE - SERUM 96 mmol/L (98-107); CREATININE - SERUM 0.7 mg/dL (0.6-1.3); GLUCOSE 90 mg/dL (74-106); POTASSIUM - SERUM 4.7 mmol/L (3.5-5.1); SODIUM 129 mmol/L (136-145); UREA NITROGEN 17 mg/dL (7-18); eGFR NON AFRICAN AMERICAN 87 mL/min (90-120)
[2018-04-15 07:49] VITALS: BP 163/81
[2018-04-15 09:11] VITALS: Ht 167.6 cm; Wt 108.9 kg
[2018-04-15 19:00] VITALS: BP 147/86
[2018-04-16 06:33] LABS: BASOPHILS 0.2 % (0-2); HEMATOCRIT 36.6 % (36.0-48.0); HEMOGLOBIN 11.3 g/dL (12-16); IMMATURE GRANULOCYTES 0.4 % (0-5); MCH 30.5 pg (26.0-34.0); MCHC 30.9 g/dL (31.0-37.0); MCV 98.9 fL (80.0-100.0); MEAN PLATELET VOLUME 9.7 fL (7.4-10.4); MONOCYTES 10.8 % (2-11); NEUTROPHILS 80.6 % (40-80); PLATELET COUNT 379 10x3/uL (130-400)
[2018-04-16 06:48] LABS: ANION GAP 8.9 mmol/L (8-16); CALCIUM 7.7 mg/dL (8.5-10.1); CARBON DIOXIDE 32.4 mmol/L (21.0-32.0); CREATININE - SERUM 0.8 mg/dL (0.6-1.3); POTASSIUM - SERUM 4.3 mmol/L (3.5-5.1)
[2018-04-16 08:00] VITALS: BP 150/54
== END 2018-04-16 15:19 | disposition home or self-care (01) | DRG 312 ==
LOC: D.REHAB 19:53
PROVIDERS: Emergency Medicine
DX: R55 Syncope and collapse (principal); I69.351 Hemiplegia and hemiparesis following cerebral infarction affecting right dominant side; I11.0 Hypertensive heart disease with heart failure; I50.9 Heart failure, unspecified; I48.91 Unspecified atrial fibrillation; I25.10 Atherosclerotic heart disease of native coronary artery without angina pectoris; K21.9 Gastro-esophageal reflux disease without esophagitis; F41.8 Other specified anxiety disorders; D50.9 Iron deficiency anemia, unspecified; G62.9 Polyneuropathy, unspecified; E87.6 Hypokalemia; E03.9 Hypothyroidism, unspecified; J30.9 Allergic rhinitis, unspecified; N32.81 Overactive bladder